=== PATIENT | female | born 1960 | race Caucasian/White ===

== ENCOUNTER 2017-05-06 07:34 | Emergency (ER) | payer BC ==
[2017-05-06 07:48] VITALS: BP 171/97
--- NOTE | 2017-05-06 08:19 | UC ---
Cat Moreno Julia, scribed for Latricia Ching MD on 05/06/17 at 0807 . FLU HPI - HPI Summary HPI Summary: This patient is a 57 year old F presenting to [facility] with a chief complaint of cough and rhinorrhea beginning 2 days ago but worse since morning. Patient reports dental pain, cough, sore throat, and mild wheezing. + sinus pressure, right ear pressure and PNDS. Patient denies fever and chills. Symptoms aggravated by leaning forward. Symptoms similar to previous sinus infections. Patient denies use of pain medication. She has been taking Claritin D to relieve symptoms. Medications reviewed this visit. - History of Current Complaint Chief Complaint: UCGeneralIllness Stated Complaint: COUGH RESP ISSUE Time Seen by Provider: 05/06/17 07:41 Hx Obtained From: Patient Onset/Duration: Lasting Days, Still Present Severity Currently: Mild Severity Initially: Mild Pain Intensity: 2 Associated Signs & Symptoms: Positive: Cough, Sore Throat, Nasal Congestion. Negative: Fever - Allergy/Home Medications Allergies/Adverse Reactions: Allergies Allergy/AdvReac Type Severity Reaction Status Date / Time No Known Allergies Allergy Verified 02/01/16 08:43 PMH/Surg Hx/FS Hx/Imm Hx Previously Healthy: Yes - Patient denies relevant medical history. - Surgical History Surgical History: None - Family History Known Family History: Positive: Cardiac Disease - father, Hypertension - mother - Social History Occupation: Employed Full-time Lives: With Family Alcohol Use: Occasionally Substance Use Type: None Smoking Status (MU): Never Smoked Tobacco Have You Smoked in the Last Year: No Review of Systems Constitutional: Negative - fever chills ENT: Dental Pain, Sore Throat, Nasal Discharge Respiratory: Cough, Other - mild wheezing All Other Systems Reviewed And Are Negative: Yes Physical Exam Triage Information Reviewed: Yes Appearance: Well-Appearing, No Pain Distress, Well-Nourished Vital Signs: Initial Vital Signs Temp 97.9 F 05/06/17 07:45 Pulse 87 05/06/17 07:45 Resp 16 05/06/17 07:45 BP 171/97 05/06/17 07:45 Pulse Ox 98 05/06/17 07:45 Vital Signs Reviewed: Yes Eye Exam: Normal Eyes: Positive: Conjunctiva Clear ENT Exam: Normal ENT: Positive: Normal ENT inspection, Hearing grossly normal, Nasal congestion, Sinus tenderness, Other - fluid right tm, left tm wnl turbinates inflammed and boggy + PND no erythema, uvula midline no exudate. Negative: Uvula midline Dental Exam: Normal Neck exam: Normal Neck: Positive: Supple, Nontender, No Lymphadenopathy Respiratory Exam: Normal Respiratory: Positive: Chest non-tender, Lungs clear, Normal breath sounds, No respiratory distress, No accessory muscle use Cardiovascular Exam: Normal Cardiovascular: Positive: RRR, No Murmur, Pulses Normal Abdominal Exam: Normal Abdomen Description: Positive: Nontender, No Organomegaly, Soft Bowel Sounds: Positive: Present Musculoskeletal Exam: Normal Musculoskeletal: Positive: Strength Intact Neurological Exam: Normal Neurological: Positive: Alert Psychological Exam: Normal Psychological: Positive: Normal Response To Family Skin Exam: Normal Flu Course/Dx - Course Course Of Treatment: Pt with sinus congestion, face pressure and PND. +right ear fluid, pnd. + tender max sinus. d/w pt at length. symptomtic tx. will write RX for abx if not improved in 3 days. flonase. hydrate. humidify air. pt's BP noted to be elevated - f/u with PCP - Differential Dx/Diagnosis Provider Diagnoses: sinusitis Discharge - Discharge Plan Condition: Stable Disposition: HOME Prescriptions: Amoxicillin PO (*) [Amoxicillin 875 MG (*)] 875 mg PO BID #20 tab Fluticasone NASAL SPRAY 50MCG* [Flonase NASAL SPRAY 50MCG*] 2 spray BOTH NARES DAILY #1 btl Patient Education Materials: Rhinosinusitis (ED) Forms: *Work Release Referrals: Colton Hurtado MD [Primary Care Provider] - Additional Instructions: - Stay well hydrated. Drink plenty of non-alcoholic, non-caffinated beverages. - Alternate ibuprofen (Advil, Motrin) 600mg and Tylenol every 3 hours for pain or fever. Take with food. Do NOT take for more than 4-5 days. - These infections are spread by secretions - do NOT share eating or drinking utensils - clean items you share with other people such as cell phones, computer mouse, TV remote, computer tablets, etc. Once you start to feel better , of 2 days after you start antibiotics, change your toothbrush and your pillowcase. - use nasal spray as prescribed - As discussed, if you are not feeling better after 2-3 days, okay to start medications as prescribed - humidify the air in the room where you sleep - boil water, run a hot steam shower, vaporizer, cups of water by heat register - okay to take over the counter decongestant and cough medication - contact your doctor, return here, or go to the emergency department with questions or concerns The documentation as recorded by the Cat nichols Julia accurately reflects the service I personally performed and the decisions made by me, Latricia Ching MD.
== END 2017-05-06 08:20 | disposition home or self-care (01) ==
LOC: UCEAST 07:34
DX: J32.9 Chronic sinusitis, unspecified (principal)
CPT/HCPCS: 99212; G0463

== ENCOUNTER 2018-03-15 07:02 | Emergency (ER) | payer BC ==
[2018-03-15 07:20] VITALS: BP 168/97
--- NOTE | 2018-03-15 07:31 | UC ---
Throat Pain/Nasal Geraldo HPI - HPI Summary HPI Summary: 57-year-old woman comes to clinic today with a chief complaint of runny nose and sinus pressure fevers. She's been having upper respiratory tract infection symptoms for a week. The last they have things got worse nourished to have fevers or rhinorrhea has gotten to green and she's feeling pain in her sinuses and into her teeth. No complaint of any dental infection symptoms. No cough or chest congestion. She tried an [id number] cough and cold medicine last night which did not help. Patient also reports some pressure in the right ear. - History of Current Complaint Chief Complaint: UCGeneralIllness Stated Complaint: SORE THROAT, SINUS PAIN Time Seen by Provider: 03/15/18 07:16 Pain Intensity: 0 - Allergies/Home Medications Allergies/Adverse Reactions: Allergies Allergy/AdvReac Type Severity Reaction Status Date / Time No Known Allergies Allergy Verified 03/15/18 07:12 PMH/Surg Hx/FS Hx/Imm Hx Previously Healthy: Yes - Surgical History Surgical History: Yes Surgery Procedure, Year, and Place: tubal ligation 1990 - Family History Known Family History: Positive: Cardiac Disease - father, Hypertension - mother Negative: Diabetes - Social History Alcohol Use: None Substance Use Type: None Smoking Status (MU): Never Smoked Tobacco Have You Smoked in the Last Year: No Review of Systems All Other Systems Reviewed And Are Negative: Yes Constitutional: Positive: Fever, Chills Skin: Positive: Negative Eyes: Positive: Negative ENT: Positive: Sore Throat, Ear Ache, Nasal Discharge, Sinus Congestion, Sinus Pain/Tenderness Respiratory: Positive: Negative Cardiovascular: Positive: Negative Gastrointestinal: Positive: Negative Motor: Positive: Negative Neurovascular: Positive: Negative Musculoskeletal: Positive: Negative Neurological: Positive: Negative Psychological: Positive: Negative Is Patient Immunocompromised?: No Physical Exam Triage Information Reviewed: Yes Appearance: No Pain Distress, Well-Nourished, Ill-Appearing - mild Vital Signs: Initial Vital Signs Temp 99.9 F 03/15/18 07:13 Pulse 99 03/15/18 07:13 Resp 18 03/15/18 07:13 BP 168/97 03/15/18 07:13 Pulse Ox 96 03/15/18 07:13 Vital Signs Reviewed: Yes Eye Exam: Normal Eyes: Positive: Conjunctiva Clear ENT: Positive: Pharyngeal erythema, Nasal congestion, Nasal drainage, TM dull - right, Uvula midline Neck exam: Normal Neck: Positive: Supple Respiratory: Positive: Lungs clear, Normal breath sounds, No respiratory distress Cardiovascular: Positive: RRR Musculoskeletal Exam: Normal Musculoskeletal: Positive: Strength Intact, ROM Intact Neurological Exam: Normal Neurological: Positive: Alert, Muscle Tone Normal Psychological Exam: Normal Psychological: Positive: Age Appropriate Behavior Skin Exam: Normal Throat Pain/Nasal Course/Dx - Course Course Of Treatment: DISCUSSED VIRAL VERSES BACTERIAL INFECTION AND THE ROLE OF ANTIBIOTICS. THE PATIENT WISHES TO BE ON ANTIBIOTIC AT THIS TIME. - Differential Dx/Diagnosis Provider Diagnosis: Sinusitis Discharge - Sign-Out/Discharge Documenting (check all that apply): Patient Departure All imaging exams completed and their final reports reviewed: No Studies - Discharge Plan Condition: Stable Disposition: HOME Prescriptions: Amoxicillin/Clavulanate TAB* [Augmentin TAB 875*] 875 mg PO BID #20 tab Patient Education Materials: Sinusitis (ED) Referrals: Colton Hurtado MD [Primary Care Provider] - Additional Instructions: FOLLOW UP WITH YOUR DOCTOR IF NOT COMPLETELY IMPROVED. GET RECHECKED FOR ANY WORSENING OF YOUR CONDITION OR QUESTIONS OR CONCERNS. - Billing Disposition and Condition Condition: STABLE Disposition: Home
== END 2018-03-15 07:35 | disposition home or self-care (01) ==
LOC: UCEAST 07:02
DX: J32.9 Chronic sinusitis, unspecified (principal)
CPT/HCPCS: 99212; G0463

== ENCOUNTER 2020-02-09 08:49 | Observation (INO) ==
[~2020-02-09 08:49] MED LIST: Buffered Lidocaine 1% SYRIN 1 ml INTRADERM ONE; Lactated Ringers 1000 ml BAG 1,000 ML IV SCH
[2020-02-09] MEDS ORDERED: ceFAZolin 2 GM PREMIX 2 GM/50 ML BAG ONE (09:28)
[2020-02-09] MEDS ORDERED: Midazolam 2 mg/2 ml VIAL 1 mg/ml 2 ml VIAL (2 mg) ONE (10:17)
[2020-02-09] MEDS ORDERED: fentaNYL 100 mcg/2 ml 50 MCG/ML VIAL ONE (10:17)
[2020-02-09] MEDS ORDERED: Lidocaine 2% PF 5 ML VIAL ONE (10:17)
[2020-02-09] MEDS ORDERED: Propofol 10 mg/ml 100 ML BTL 100 ML ONE (10:35)
[2020-02-09] MEDS ORDERED: Bupivacaine 0.5% SDV PF 30ML VIAL ONE (11:55)
[2020-02-09] MEDS ORDERED: Phenylephrine 40 mcg/mL 10mL (400mcg) SYRINGE ONE (12:55)
[2020-02-09] MEDS ORDERED: fentaNYL 100 mcg/2 ml 50 MCG/ML VIAL IV PRN (13:14)
[2020-02-09] MEDS ORDERED: Ondansetron 4 mg VIAL 2 MG/ML 2 ml VIAL IV PRN ×2 (13:14→14:22)
[2020-02-09] MEDS ORDERED: Naloxone 0.4 mg VIAL 0.4 mg/ml 1 ml VIAL IV PRN (13:14)
[2020-02-09] MEDS ORDERED: DiMENhydriNATE IV 50 mg/ml 1 ml VIAL IV PUSH PRN (13:14)
[2020-02-09] MEDS ORDERED: HYDROmorphone 1 MG/1 ML SYRINGE IV PRN (13:14)
[2020-02-09] MEDS ORDERED: Propofol 10 MG/ML 20 ML BTL ONE (13:53)
[2020-02-09] MEDS ORDERED: Ondansetron 4 mg VIAL 2 MG/ML 2 ml VIAL ONE (13:53)
[2020-02-09] MEDS ORDERED: EPHEDrine (Pressors) 50 MG/ML VIAL ONE (13:53)
[2020-02-09] MEDS ORDERED: Magnesium Hydroxide LIQ 30 ML UDC PO PRN (14:22)
[2020-02-09] MEDS ORDERED: diPHENhydraMINE 25 mg TAB PO PRN (14:22)
[2020-02-09] MEDS ORDERED: Ondansetron ODT 4 mg TAB 4 MG TAB PO PRN (14:22)
[2020-02-09] MEDS ORDERED: Morphine 2 MG/ML SYRINGE IV PRN (14:22)
[2020-02-09] MEDS ORDERED: oxyCODONE/Acetamin 5/325 mg TAB PO PRN (14:22)
[2020-02-09] MEDS ORDERED: Lactulose 30 ml UDC PO PRN (14:22)
[2020-02-09] MEDS ORDERED: diPHENhydraMINE IV 50 MG/ML 1 ml VIAL (BENADRYL) IV PRN (14:22)
[2020-02-09] MEDS: Lactated Ringers 1000 ml BAG 1,000 ML IV SCH (15:27)
[2020-02-09] MEDS ORDERED: Lactated Ringers 1000 ml BAG 1,000 ML IV ONE (16:48)
[2020-02-09] MEDS: oxyCODONE/Acetamin 5/325 mg TAB PO PRN (17:54)
[2020-02-09] MEDS ORDERED: Sulfamethox/Trimethoprim DS TAB 800/160 mg PO SCH (21:00)
[2020-02-09] MEDS: ceFAZolin 1 GM ADVAN 1 GM in NS 0.9% 50 ML 50 ML IVPB SCH (22:42)
[2020-02-09] MEDS: Magnesium Hydroxide LIQ 30 ML UDC PO SCH (22:43)
[2020-02-10] MEDS: oxyCODONE/Acetamin 5/325 mg TAB PO PRN ×2 (02:42→08:24)
[2020-02-10] MEDS: Lactated Ringers 1000 ml BAG 1,000 ML IV SCH (04:09)
[2020-02-10 06:00] LABS: Hematocrit 30 % (35-47); Hemoglobin 10.2 g/dL (12.0-16.0); Mean Platelet Volume 8.9 fL (7.4-10.4); Platelet Count 129 10^3/uL (150-450)
[2020-02-10] MEDS: ceFAZolin 1 GM ADVAN 1 GM in NS 0.9% 50 ML 50 ML IVPB SCH ×2 (06:36→12:48)
[2020-02-10 07:18] LABS: BUN/Creatinine Ratio 11.2 (8-20); EGFR African American 70.3 (>60); EGFR Non-African American 58.1 (>60)
[2020-02-10] MEDS: Magnesium Hydroxide LIQ 30 ML UDC PO SCH (08:24)
[2020-02-10] MEDS ORDERED: Vitamin THERAPEUTIC TAB PO SCH (09:00)
[2020-02-10 12:48] VITALS: BP 110/58
[2020-02-12] MEDS ORDERED: Scopolamine PATCH Remove NOTE PATCH OFF ONE (13:16)
== END 2020-02-10 14:50 | disposition home health service (06) ==
LOC: OR 08:49 → SSU 08:49
PROVIDERS: ADMIT Orthopaedic Surgery Adult Reconstructive Orthopaedic Surgery; ATTEND Orthopaedic Surgery Adult Reconstructive Orthopaedic Surgery